=== PATIENT | female | born 2005 | race Caucasian/White ===

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

== ENCOUNTER 2023-04-17 11:29 | Emergency (ER) | payer BC, SELFPAY ==
[2023-04-17 11:42] VITALS: BP 136/76; PULSE 81; RESP 16; TEMP 36.6; O2SAT 97
--- NOTE | 2023-04-17 11:49 | ED.NAVMDI ---
HPI - Nausea/Vomiting/Diarrhea General Chief complaint: Nausea/Vomiting/Diarrhea Stated complaint: Nausea; Diarrhea Time Seen by Provider: 04/17/23 11:51 Source: patient and RN notes reviewed Mode of arrival: ambulatory Limitations: no limitations History of Present Illness HPI Narrative: 17 y/o female presented for c/o 4 days of nausea and diarrhea. Endorses one episode of vomiting today. Has been having only one episode of diarrhea daily. Reports occasional sweats. Denies abdominal pain, decreased appetite, hematochezia, melena, hematemesis, or urinary complaints. Not taking anything for symptoms. Denies sick contacts. Work needs covid test. LMP 3 months; scheduled with obgyn next week neg preg at home x3. Related Data Home Medications Medication Instructions Recorded Confirmed norethindrone 1.5 mg-ethinyl tablet 04/17/23 estradiol 30 mcg(21)/iron 75 mg(7) tablet (June FE 1.5/30 (28)) sertraline 50 mg tablet mg 04/17/23 Allergies Allergy/AdvReac Type Severity Reaction Status Date / Time cocamidopropyl betaine Allergy Unknown Unknown Verified 08/21/22 10:01 paraben Allergy Rash Verified 08/21/22 10:01 gold Allergy Unknown Unknown Uncoded 08/21/22 10:01 Review of Systems Review of Systems: CONSTITUTIONAL: Denies body aches, fever, chills reports sweats ENT: reports mild rhinorrhea, congestion CARDIOVASCULAR: Denies chest pain, palpitations, or edema. RESPIRATORY: Denies cough or dyspnea. GASTROINTESTINAL: Endorses nausea, vomiting, diarrhea. Denies abdominal pain, hematochezia, melena, hematemesis GENITOURINARY: Denies dysuria, hematuria, or CVA tenderness. SKIN: Denies rash, itching, or wounds. MUSCULOSKELETAL: Denies back pain, joint pain, or myalgia. NEUROLOGIC: Denies headache, numbness, tingling, or weakness. All systems reviewed & are unremarkable except as noted in HPI and below PMFSH Past Medical History Medical History Anxiety Concussion Elbow fracture, right Surgical History Surgical History History of placement of ear tubes Family History Family History Father Depression Heart disease Mother Diabetes mellitus Depression Cerebrovascular accident Sibling Asthma Depression Grandparent History of ETOH abuse Diabetes mellitus Hypertension Depression Grandparent History of ETOH abuse Depression Other No significant family history Social History Social History Smoking status: Current every day smoker Tobacco type: e-cigarettes/vaping Smoking end date: 05/29/22 Alcohol intake: never Substance use: current Substance use type: marijuana Lack of Transportation: No Lack of Food: Sometimes True Current Housing: I Have Housing Concerned About Future Housing: No Difficulty Paying Gas/Electric Bills: No Difficulty Paying for Meds: No Currently Unemployed: No Education: High School Diploma/GED Difficulty w/ Childcare or Family Care: No Living arrangements: with family Occupation/Education: occupation 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 Please see nursing chart for further information. There is no relevant family history pertinent to the presenting complaint Exam Narrative: GENERAL: Well-appearing, and in no acute distress. EYES: EOMI. Conjunctivae normal. ENT: Mucous membranes pink and moist. CHEST: No respiratory distress. Clear to auscultation. HEART: Regular rate and rhythm. No murmur appreciated. Normal peripheral pulses. ABDOMEN: abd soft, nondis
== END 2023-04-17 12:23 | disposition home or self-care (01) ==
PROVIDERS: Emergency Provider Nurse Practitioner Family; PCP Family Medicine
DX: R11.2 Nausea with vomiting, unspecified (principal); R19.7 Diarrhea, unspecified; Z20.822 Contact with and (suspected) exposure to COVID-19; F12.90 Cannabis use, unspecified, uncomplicated
CPT/HCPCS: 87426; 87804; 99213; C9803; G0463

== ENCOUNTER 2023-07-28 11:40 | Outpatient (CLI) | payer BC, SELFPAY ==
[2023-07-28 19:56] LABS: Hepatitis B Surface Anti Res Negative
[2023-07-31 13:17] LABS: Rubeola Measles IgG >300.00 AU/mL
== END 2023-07-28 11:41 | disposition home or self-care (01) ==
LOC: ANHBWCLAB 11:42
PROVIDERS: PCP Nurse Practitioner Adult Health; Visit Provider Nurse Practitioner Adult Health
DX: Z01.84 Encounter for antibody response examination (principal)
CPT/HCPCS: 36415; 86706; 86735; 86762; 86765; 86787

== ENCOUNTER 2023-10-30 12:14 | Emergency (ER) | payer BC, SELFPAY ==
--- NOTE | ~2023-10-30 | XR_ITS ---
EXAMINATION: XR lumbar spine 2-3V DATE: 10/30/2023 12:48 INDICATION: Low back pain TECHNIQUE: Anteroposterior and lateral views of the lumbar spine, and cone-down lateral view of the l umbosacral junction were obtained. COMPARISON: None. FINDINGS: Alignment is normal. Vertebral body and disc heights are normal. Lumbar facet, bilateral sacroiliac a nd bilateral hip joints all appear normal. Large amount stool scattered throughout colon which can be seen with constipation. IMPRESSION: 1. Negative lumbar spine radiographs. Reviewed, dictated and finalized at location A.
[2023-10-30 12:26] VITALS: BP 123/70; PULSE 88; RESP 16; TEMP 36.7; O2SAT 100
--- NOTE | 2023-10-30 13:15 | ED.GENADULT ---
HPI - General Adult General Chief complaint: Back Pain/Injury Stated complaint: back pain Source: patient Mode of arrival: ambulatory Limitations: no limitations History of Present Illness HPI narrative: Patient presents for evaluation low back pain since yesterday. She indicates she attempted to lift boyfriend up over her shoulder which she felt a pop? in her low back. She currently rates her pain as 6/10 and describes it as sharp. No radicular component. No paresthesias. No saddle anesthesia. No bladder/bowel incontinence. She has not taken any medication for her symptoms. Related Data Allergies Allergy/AdvReac Type Severity Reaction Status Date / Time cocamidopropyl betaine Allergy Unknown Unknown Verified 07/28/23 11:07 paraben Allergy Rash Verified 07/28/23 11:07 gold Allergy Unknown Unknown Uncoded 07/28/23 11:07 Review of Systems Review of Systems: CONSTITUTIONAL: Denies fever, chills, or sweats. EYES: Denies visual changes, redness, or discharge. ENT: Denies rhinorrhea, congestion, sore throat, or otalgia. CARDIOVASCULAR: Denies chest pain, palpitations, or edema. RESPIRATORY: Denies cough or dyspnea. GASTROINTESTINAL: Denies abdominal pain, nausea, vomiting, or diarrhea. GENITOURINARY: Denies dysuria or hematuria. SKIN: Denies rash or itching. MUSCULOSKELETAL: Reports low back pain. Denies joint pain or myalgia. NEUROLOGIC: Denies headache, numbness, dizziness, or weakness. PSYCHIATRIC: Denies anxiety or depression. [facility] Past Medical History Medical History Anxiety Concussion Elbow fracture, right Surgical History Surgical History History of placement of ear tubes Family History Family History Father Depression Heart disease Mother Diabetes mellitus Depression Cerebrovascular accident Sibling Asthma Depression Grandparent History of ETOH abuse Diabetes mellitus Hypertension Depression Grandparent History of ETOH abuse Depression Other No significant family history Social History Social History Smoking status: Current every day smoker Tobacco type: e-cigarettes/vaping Smoking end date: 05/29/22 Alcohol intake: never Substance use: current Substance use type: marijuana Lack of Transportation: No Lack of Food: Sometimes True Current Housing: I Have Housing Concerned About Future Housing: No Difficulty Paying Gas/Electric Bills: No Difficulty Paying for Meds: No Currently Unemployed: No Education: High School Diploma/GED Difficulty w/ Childcare or Family Care: No Living arrangements: with family Occupation/Education: occupation 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 HEAD: Normocephalic, atraumatic. EYES: PERRLA and EOMI. ENT: Nares clear, no rhinorrhea or epistaxis. Mucous membranes moist. Oropharynx without tonsillar hypertrophy exudate or other lesions. Bilateral TMs pearly norton nonbulging NECK: Supple. No adenopathy or masses. No carotid bruits or JVD CHEST: Clear to auscultation. No respiratory distress. No wheezes rales or rhonchi HEART: Regular rate and rhythm. No murmur heard. Normal peripheral pulses. ABDOMEN: Soft, nontender, nondistended, normal active bowel sounds. BACK:Mild tenderness in midline and paraspinous muscles of the lumbar spine. EXTREMITIES: Normal range of motion. No edema. SKIN: Warm, dry, no rash. NEURO: No focal deficits. Alert and oriented x3. PSYCH: Normal mood and affect. Course Course Emergency Course: This is a 18-year-old female who presented for evalu
== END 2023-10-30 13:15 | disposition home or self-care (01) ==
PROVIDERS: Emergency Provider Nurse Practitioner; PCP Nurse Practitioner Adult Health
DX: S39.012A Strain of muscle, fascia and tendon of lower back, initial encounter (principal); X50.0XXA Overexertion from strenuous movement or load, initial encounter; Z87.891 Personal history of nicotine dependence; F12.90 Cannabis use, unspecified, uncomplicated
CPT/HCPCS: 72100; 81025; 99213; G0463

== ENCOUNTER 2023-11-23 10:19 | Outpatient (CLI) | payer BC, SELFPAY ==
[2023-11-23 18:41] LABS: Hematocrit 39.9 % (37.0-47.0); Hemoglobin 13.5 g/dL (12.0-15.0); Mean Corpuscular HGB Conc 33.8 g/dl (32-36); Mean Corpuscular Hemoglobin 30.3 pg (26-34); Mean Corpuscular Volume 89.7 fl (80-100); Mean Platelet Volume 9.5 fl (7.4-10.4); Platelet Count Result 323 k/mm3 (150-375); Red Blood Count 4.45 M/mm3 (4.2-5.4); Red Cell Distribution Width 12.9 % (11.5-14.5); White Blood Count 5.8 K/mm3 (4.5-10.0)
[2023-11-23 19:01] LABS: Iron 122 ug/dL (37-170)
[2023-11-23 19:11] LABS: Alanine Aminotransferase 18 U/L (6-35); Albumin Level 4.5 g/dL (3.5-5.1); Alkaline Phosphatase 58 U/L (38-126); Anion Gap 11 mmol/L (4-12); Aspartate Amino Transferase 61 U/L (14-36); Bilirubin,Total 0.4 mg/dL (0.2-1.3); Blood Urea Nitrogen 13 mg/dL (7-17); Calcium 9.4 mg/dL (8.4-10.2); Carbon Dioxide 24 mmol/L (22-30); Chloride 102 mmol/L (98-107); Estimated Glomerular Filt Rate > 60; Glucose 94 mg/dL (65-110); Percent Iron Saturation 31 % (20-50); Potassium 3.8 mmol/L (3.4-5.0); Sodium 137 mmol/L (137-145)
[2023-11-23 19:19] LABS: Free T4 Free Thyroxine 0.98 ng/mL (0.78-2.19)
[2023-11-26 09:33] LABS: Thyroid Peroxidase Antibodies 51 IU/mL (<9)
== END 2023-11-23 10:20 | disposition home or self-care (01) ==
LOC: ANHBWCLAB 10:20
PROVIDERS: PCP Nurse Practitioner Adult Health; Visit Provider Nurse Practitioner Adult Health
DX: L65.9 Nonscarring hair loss, unspecified (principal)
CPT/HCPCS: 36415; 80053; 82728; 83540; 83550; 84439; 84443; 85027; 86376

== ENCOUNTER 2023-12-14 07:56 | Outpatient (CLI) | payer BC, SELFPAY ==
--- NOTE | ~2023-12-14 | US_ITS ---
EXAMINATION: US thyroid DATE: 12/14/2023 08:23 INDICATION: Other specified abnormal findings of blood chemistry. TECHNIQUE: Multiple ultrasound images of the thyroid were obtained. COMPARISON: None. FINDINGS: The right thyroid lobe measures 4.5 x 1.5 x 2.0 cm. The left thyroid lobe measures 4.5 x 1.4 x 1.8 c m. The thyroid demonstrates heterogeneous echogenicity. Vascularity is increased. No discrete nodule . IMPRESSION: 1. 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 Reviewed, dictated and finalized at location A.
== END 2023-12-14 07:57 | disposition home or self-care (01) ==
LOC: ANHIMG 07:59
PROVIDERS: PCP Nurse Practitioner Adult Health; Visit Provider Nurse Practitioner Adult Health
DX: R79.89 Other specified abnormal findings of blood chemistry (principal)
CPT/HCPCS: 76536

== ENCOUNTER 2024-01-12 15:43 | Emergency (ER) | payer BC, SELFPAY ==
--- NOTE | 2024-01-12 15:46 | ED.URI ---
HPI - URI/Sore Throat General Chief Complaint: Upper Respiratory Infection Stated Complaint: Sore Throat/Nausea Time Seen by Provider: 01/12/24 16:21 Source: patient and RN notes reviewed Mode of arrival: ambulatory Limitations: no limitations History of Present Illness HPI Narrative: 18-year-old female presents with concern for 3 day history of sore throat, nausea, cough, head congestion. She reports headache, fatigue. Denies fever, body aches, chills, sweats. She reports she has been taking cough drops. MD elicited complaint: cough and sore throat Related Data Home Medications Medication Instructions Recorded Confirmed etonogestrel 68 mg subdermal 1 implant subdermal ONCE 11/23/23 01/12/24 implant (Nexplanon) Allergies Allergy/AdvReac Type Severity Reaction Status Date / Time cocamidopropyl betaine Allergy Unknown Unknown Verified 01/12/24 16:11 paraben Allergy Rash Verified 01/12/24 16:11 gold Allergy Unknown Unknown Uncoded 01/12/24 16:11 Review of Systems Review of Systems: CONSTITUTIONAL: Denies malaise, chills, sweats, or fever. Reports fatigue EYES: Denies visual changes, redness, or discharge. ENT: Reports rhinorrhea, congestion, and sore throat. CARDIOVASCULAR: Denies chest pain, palpitations, or edema. RESPIRATORY: Reports cough. Denies dyspnea. GASTROINTESTINAL: Denies abdominal pain, nausea, vomiting, diarrhea SKIN: Denies rash or itching. MUSCULOSKELETAL: Denies myalgia. NEUROLOGIC: Reports headache. All systems reviewed & are unremarkable except as noted in HPI and below PMFSH Past Medical History Medical History Anxiety Concussion Elbow fracture, right Surgical History Surgical History History of placement of ear tubes Family History Family History Father Depression Heart disease Mother Diabetes mellitus Depression Cerebrovascular accident Sibling Asthma Depression Grandparent History of ETOH abuse Diabetes mellitus Hypertension Depression Grandparent History of ETOH abuse Depression Other No significant family history Social History Social History Smoking status: Current every day smoker Tobacco type: e-cigarettes/vaping Smoking end date: 05/29/22 Alcohol intake: never Substance use: current Substance use type: marijuana Lack of Transportation: No Lack of Food: Sometimes True Current Housing: I Have Housing Concerned About Future Housing: No Difficulty Paying Gas/Electric Bills: No Difficulty Paying for Meds: No Currently Unemployed: No Education: High School Diploma/GED Difficulty w/ Childcare or Family Care: No Living arrangements: with family Occupation/Education: occupation 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 There is no relevant family history pertinent to the presenting complaint Exam Narrative: GENERAL: Well-appearing, well-nourished, and in no acute distress. HEAD: Normocephalic EYES: PERRLA, conjunctivae clear ENT: Nares clear. Mucous membranes moist. TM pearly norton with dull light reflex bilaterally; no tragal tenderness. Oropharynx not erythematous without lesions. Tonsils not enlarged and without exudate, no drooling, no hoarseness, no trismus, uvula midline. NECK: Supple. No lymphadenopathy CHEST: Clear to auscultation, breath sounds equal. No wheezing, rhonchi, rales, or stridor. No respiratory distress, speaks in full sentences. HEART: Regular rate and rhythm. No murmur heard. SKIN: Warm, dry, no rash. NEURO: Alert and oriented x3. PSYCH: N
[2024-01-12 15:48] VITALS: BP 126/69; PULSE 78; RESP 181; TEMP 36.6; O2SAT 100
[2024-01-12 16:23] LABS: EDSTREPNEGPOS1 Negative (Negative)
[2024-01-12 16:25] LABS: EDCOVIDSCREEN Negative (Negative)
== END 2024-01-12 16:30 | disposition home or self-care (01) ==
PROVIDERS: Emergency Provider Nurse Practitioner; PCP Nurse Practitioner Adult Health
DX: J06.9 Acute upper respiratory infection, unspecified (principal); F41.9 Anxiety disorder, unspecified; Z20.822 Contact with and (suspected) exposure to COVID-19
CPT/HCPCS: 87081; 87635; 87880; 99213; G0463

== ENCOUNTER 2024-10-23 14:52 | Outpatient (CLI) | payer MEDICAID, SELFPAY ==
[2024-10-23 21:01] LABS: Free T4 Free Thyroxine 1.02 ng/dL (0.78-2.19)
== END 2024-10-23 14:53 | disposition home or self-care (01) ==
PROVIDERS: PCP Nurse Practitioner Adult Health; Visit Provider Nurse Practitioner Adult Health
DX: E06.3 Autoimmune thyroiditis (principal)
CPT/HCPCS: 36415; 84439; 84443

== ENCOUNTER 2025-02-28 14:38 | Outpatient (CLI) | payer MEDICAID, SELFPAY ==
--- OUTSIDE RECORDS SUMMARY | 2025-02-28 16:23 | XMS_ITS | Clinical Summary ---
Author Organization [facility] [address] Address [address] [place] [address] Phone Care Team Providers Care Pilling Machine Operator Name Role Phone Juan Cabrera MD Primary Care Provider Allergies Active Allergy Reactions Criticality Noted Date Comments Cocamidopropyl Betaine Rash Medium 11/12/2020 Other Rash Medium 11/12/2020 Paraben mix 1+ Gold 1+ Medications dupilumab (DUPIXENT) pen injector Inject 2 mL (300 mg total) under the skin every 14 (fourteen) days 4 mL 11 1 Active Additional Information Patient not taking.Reported on 05/29/2024 Lo Loestrin Fe 1 mg-10 mcg (24)/10 mcg (2) tablet per tablet 1 Active ondansetron (ZOFRAN) 4 mg tabletIndication s:nausea and vomiting after head strike Take 1 tablet (4 mg total) by mouth every 6 (six) hours 12 tablet 2 Active Additional Information Patient not taking.Reported on 05/29/2024 hydrocortisone 2.5 % ointmentIndicati ons:Atopic dermatitis, unspecified type Apply to eczema twice daily on face and nipples for no longer than 2 weeks. 30 g 5 3 Active Additional Information Patient not taking.Reported on 05/29/2024 triamcinolone (KENALOG) 0.1 % ointmentIndicati ons:Atopic dermatitis, unspecified type Apply to affected areas with eczema twice daily until rash resolves. 454 g 11 3 Active Additional Information Patient not taking.Reported on 05/29/2024 clindamycin (CLEOCIN T) 1 % lotionIndication s:Acne Vulgaris Apply topically 2 (two) times a day 60 mL 11 3 Active Additional Information Patient not taking.Reported on 05/29/2024 sertraline (ZOLOFT) 50 mg tablet Take 1 tablet (50 mg total) by mouth daily Active Active Problems Problem Noted Date Diagnosed Date Rash and other nonspecific skin eruption 018 Overview (05/21/2021): onset age 5 with worsening on TAC 09/23/17 consider ACD vs. occult tinea, resolving molluscum, component of facial sabina derm; rec OTC HC to face, cont TAC to body, Safe Products; fungal Cx + 1 mo empiric Rx terbinafine 250 mg; OTC medicated shampoo 2 dogs/1 cat at home Insurance coverage problems 09/23/2017 Overview (05/21/2021): [place] with limited skin medication formulary 09/23/17 discussed alternate insurance Closed nondisplaced fracture of medial epicondyle of right humerus 05/27/2017 Medical History Medical History Date Comments Eczema Depression Social History Tobacco Use Types Packs/Day Years Used Date Smoking Tobacco: Every Day Tobacco Cessation:Ready to Q uit: Not Asked; Counseling Given: Not Answered Alcohol Use Standard Drinks/Week Comments Not Currently 0 (1 standard drink = 0.6 oz pur e alcohol) Personal Safety Answer Date Recorded Have you ever been in or are you currently in a harmful physical or emotional relationship or is someone making you feel afraid or unsafe? Denies 02/09/2024 Comments No Sex and Gender Information Value Date Recorded Sex Assigned at Not on file Legal Sex Female 8:24 AM MANAGER HEART Gender Identity Not on file Sexual Orientation Not on file Obstetrics History Last Filed Vital Signs Vital Sign Reading Time Taken Comments Blood Pressure 126/80 05/29/2024 3:55 PM MANAGER HEART Pulse 95 05/29/2024 3:55 PM MANAGER HEART Temperature 36.7 C (98 F) 05/29/2024 3:55 PM MANAGER HEART Respiratory Rate 16 05/29/2024 3:55 PM MANAGER HEART Oxygen Saturation 99% 05/29/2024 3:55 PM MANAGER HEART Inhaled Oxygen Concentration - - Weight 74.8 kg (165 lb) 05/29/2024 3:55 PM MANAGER HEART Height 167.6 cm (5' 6) 05/29/2024 3:55 PM MANAGER HEART Body Mass Index 26.63 05/29/2024 3:55 PM MANAGER HEART Plan of Treatment Health Maintenance Due Date Last Done Comments Cervical Cancer Screening 2003 Depression Screening 2003 Hepatitis C Screening 2003 Pneumococcal vaccine <65 (1 of 1 - PPSV23, PCV20, or PCV21) 09/06/2009 03/14/2004, 01/17/2004, 2003 Regular Well Visit/Exam 18-64 09/06/2021 Covid-19 Vaccine (3 - 2024-2 6 season) 2025 08/22/2020, 08/01/2020 Influenza Vaccine (#1) 2025 , 02/02/2022, 04/12/2019, Additional history exists DTaP/Tdap/Td Vaccine (8 - Td or Tdap) 09/13/2030 09/13/2020, 11/26/2014, 12/05/2008, Additional history exists Hepatitis B Screening Completed 03/14/2004 , 01/17/2004, 2003, Additional history exists Varicella Vaccines Completed 12/05/2008, 09/16/2004 HPV Vaccines Completed 02/15/2017, 01/02, 11/26/2014 Meningococcal Vaccine Completed 09/21/2019, 015 Meningococcal B Vaccine Completed 10/26/2019, 09/20 Insurance [facility] [address] [place] [address] [facility][1] [facility] Care Teams Pilling Machine Operator Relationship Specialty Start Date End Date Juan Cabrera MD PCP - General Pediatrics 05/27/17
--- OUTSIDE RECORDS SUMMARY | 2025-02-28 16:23 | XMS_ITS | Clinical Summary ---
Author Organization [facility] Address [address] [place] [address] Care Team Providers Care Assembly Line Brazer Name Role Phone Juan Cabrera MD Unavailable [phone] Yelena Cleary MD Primary Care Provider [phone] Source Comments [facility],non-owned Affiliates and Associated Physician Practices is amultiple site organization consisting of ambulatory clinics and hospital sitesin [place], [place], [place] and [place]. This disclosure is being madepursuant to the Care Everywhere program and may not contain all information available regarding this patient. Last updated 18.[facility] Allergies No known active allergies Medications * Be aware that medications may not be up to date on this document. Alwaysverify current medications with the patient. acetaminophen (TYLENOL) 325 MG tablet Take 325 mg by mouth every 4 hours as needed for Fever or Pain Maximum allowable Acetaminophen amount = 4 Grams (4000 mg) / 24 hours. Active vitamin D, ergocalciferol , (DRISDOL) 43089 UNITS capsule 8 Active triamcinolone acetonide (KENALOG) 0.1 % ointment APPLY BY TOPICAL ROUTE TO RASH ONE TO TWO TIMES DAILY - BUT NOT ON FACE 2 8 Active amitriptyline (ELAVIL) 25 MG tablet 8 Active terbinafine (LAMISIL) 250 MG tablet Take 1 tablet by mouth once daily 30 tablet 8 Active Additional Information Patient not taking.Reported on 09/13/2020 oxyCODONE, immediate release, (ROXICODONE) 5 MG tablet Take 1 (one) tablet by mouth every 4 hours as needed for Pain 8 tablet Active Active Problems Problem Noted Date Diagnosed Date Rash and other nonspecific skin eruption 018 Overview (09/24/2017): onset age 5 with worsening on TAC 09/23/17 consider ACD vs. occult tinea, resolving molluscum, component of facial sabina derm; rec OTC HC to face, cont TAC to body, Safe Products; fungal Cx + 1 mo empiric Rx terbinafine 250 mg; OTC medicated shampoo 2 dogs/1 cat at home Insurance coverage problems 09/23/2017 Overview (09/24/2017): [place] with limited skin medication formulary 09/23/17 discussed alternate insurance Closed nondisplaced fracture of medial epicondyle of right humerus 05/27/2017 Immunizations Immunization Administration Dates Next Due TDAP (7yrs+) 09/13/2020 Family History Medical History Relation Name Comments Eczema Maternal Grandmother Relation Name Status Comments Maternal Grandmother Social History Tobacco Use Types Packs/Day Years Used Date Smoking Tobacco: Never Smokeless Tobacco: Never Alcohol Use Standard Drinks/Week Comments Never 0 (1 standard drink = 0.6 oz pur e alcohol) Comments No Sex and Gender Information Value Date Recorded Sex Assigned at Not on file Legal Sex Female 2:05 PM CDT Gender Identity Not on file Sexual Orientation Not on file Last Filed Vital Signs Vital Sign Reading Time Taken Comments Blood Pressure 120/76 09/13/2020 8:39 PM CDT Pulse 76 09/13/2020 8:39 PM CDT Temperature 36.4 C (97.6 F) 09/13/2020 8:39 PM CDT Respiratory Rate 18 09/13/2020 5:33 PM CDT Oxygen Saturation 98% 09/13/2020 8:39 PM CDT Inhaled Oxygen Concentration - - Weight 67.4 kg (148 lb 9.4 oz) 09/13/2020 5:33 P M CDT Height 165.1 cm (5' 5) 09/23/2017 1:23 PM CDT Body Mass Index - - Plan of Treatment Health Maintenance Due Date Last Done Comments HIV SCREENING 09/06/2018 HPV VACCINE (1 - 3-dose series) 09/06/2018 CHLAMYDIA/GONORRHEA SCREENING 2019 MENINGOCOCCAL (Group B) VACC INE SHARED DECISION-MAKING (1 of 2 - Standard) 2019 HEPATITIS C SCREENING 09/02/2021 HEPATITIS B VACCINE (1 of 3 - 19+ 3-dose series) 09/06/2022 DEPRESSION SCREENING 05/03/2024 COVID-19 VACCINE (1 - 2023-2 5 season) 2025 INFLUENZA VACCINE (#1) 2025 DTAP/TDAP/TD VACCINES (2 - T d or Tdap) 09/13/2030 09/13/2020 ZOSTER VACCINE (1 of 2) 09/06/2053 HIB VACCINE Aged Out No longer eligi ble based on patient's age to complete this topic MENINGOCOCCAL GROUPS A/C/Y/W VACCINE Aged Out No longer eligible b ased on patient's age to complete this topic PNEUMOCOCCAL VACCINE Aged Out No long er eligible based on patient's age to complete this topic Insurance [facility] [id number] [place] [address] [facility] Care Teams Assembly Line Brazer Relationship Specialty Start Date End Date Yelena Cleary MD [address] [place], [place] [id number] PCP - General 09/18/20 Juan Cabrera MD [address] [place], [place] [id number] Pediatrics 09/01/17
--- OUTSIDE RECORDS SUMMARY | 2025-02-28 16:23 | XMS_ITS | Clinical Summary ---
Author Organization [id number] Address [address] [facility] [address] [place] [address] Phone Care Team Providers Care Blacksmith Assistant Name Role Phone Yelena Cleary MD Primary Care Provider Allergies No known active allergies Medications No known medications Active Problems No known active problems Immunizations Immunization Administration Dates Next Due INFLUENZA VACCINE QUADRIVALENT 3 YR UP PF IM 07/2021 INFLUENZA VACCINE QUADRIVALENT 6 MOS UP PF IM Family History Medical History Relation Name Comments Hypertension Father Diabetes Mother Relation Name Status Comments Father Mother Social History Tobacco Use Types Packs/Day Years Used Date Smoking Tobacco: Never Assessed Comments Unknown Sex and Gender Information Value Date Recorded Sex Assigned at Not on file Legal Sex Female 11:28 AM CDT Gender Identity Not on file Sexual Orientation Not on file Last Filed Vital Signs Vital Sign Reading Time Taken Comments Blood Pressure 134/86 12/15/2012 11:40 AM CDT Pulse 84 12/15/2012 11:40 AM CDT Temperature 36.9 C (98.4 F) 12/15/2012 11:40 AM CDT Respiratory Rate 20 12/15/2012 11:40 AM CDT Oxygen Saturation 98% 12/15/2012 11:40 AM CDT Inhaled Oxygen Concentration - - Weight 37.6 kg (83 lb) 12/15/2012 11:40 AM CDT Height 137.2 cm (4' 6) 12/15/2012 11:40 AM CDT Body Mass Index 20.01 12/15/2012 11:40 AM CDT Plan of Treatment Health Maintenance Due Date Last Done Comments CHLAMYDIA SCREENING (ANNUAL) 11-24 YEARS 09/06/2014 HPV VACCINES (1 - 3-dose series) 09/06/2018 HEPATITIS B VACCINES (1 of 3 - 19+ 3-dose series) 09/06/2022 CERVICAL CANCER SCREENING 09/06/2024 HPV/Cotest (21-29) 09/06/2024 PAP SMEAR 09/06/2024 INFLUENZA VACCINE (#1) 2024 01/25/2023, 2021 DTAP/TDAP/TD VACCINES (2 - Td or Tdap) 09/13/2030 Care Teams Blacksmith Assistant Relationship Specialty Start Date End Date Yelena Cleary MD [address] [place] [address] PCP - General Pediatrics 12/15/12
--- OUTSIDE RECORDS SUMMARY | 2025-02-28 16:23 | XMS_ITS | Clinical Summary ---
Author Organization [facility] Address [address] [place] [address] Phone Care Team Providers Care Lead Press Operator Name Role Phone Juan Cabrera MD Primary Care Provider Allergies No known active allergies Medications docusate sodium (COLACE) 60 MG/15ML Syrup Take 15 mL by mouth daily. 240 mL 0 07/27/2015 Active meloxicam (MOBIC) 7.5 MG Tablet Take 1 Tab by mouth daily. 10 Tab 02/24/2017 Active Social History Tobacco Use Types Packs/Day Years Used Date Smoking Tobacco: Passive Smo ke Exposure - Never Smoker Smokeless Tobacco: Never Alcohol Use Standard Drinks/Week Comments Not Currently 0 (1 standard drink = 0.6 oz pur e alcohol) Comments No Sex and Gender Information Value Date Recorded Sex Assigned at Not on file Legal Sex Female 10:43 PM CDT Gender Identity Not on file Sexual Orientation Not on file Last Filed Vital Signs Vital Sign Reading Time Taken Comments Blood Pressure 141/80 04/02/2020 4:07 PM STAFFING EXECUTIVE Pulse 73 04/02/2020 4:07 PM STAFFING EXECUTIVE Temperature 37.1 C (98.8 F) 04/02/2020 2:04 PM STAFFING EXECUTIVE Respiratory Rate 16 04/02/2020 4:07 PM STAFFING EXECUTIVE Oxygen Saturation 99% 04/02/2020 4:07 PM STAFFING EXECUTIVE Inhaled Oxygen Concentration - - Weight 67.8 kg (149 lb 7.6 oz) 04/02/2020 2:04 P M STAFFING EXECUTIVE Height 162.6 cm (5' 4) 04/02/2020 2:04 PM STAFFING EXECUTIVE Body Mass Index 25.66 04/02/2020 2:04 PM STAFFING EXECUTIVE Plan of Treatment Health Maintenance Due Date Last Done Comments Hepatitis C Virus (HCV) Screening 2003 Influenza Immunization (#1) 01/01/202504/02, 02/15/2017, 01/28/2015, Additional history exists SARS-COV-2 Immunization ( season) 2025 08/22/2020, 08/01/2020 Respiratory Syncytial Virus (RSV) Immunization (Adult) (1 - 1-dose 75+ series) 09/06/2078 Hepatitis B Immunization Completed 004, 01/17/2004, 2003, Additional history exists Pneumococcal Immunization Combined Aged Out 03/14/2004, 01/17/2004, 2003 No longer eligible based on patient's age to complete this topic Hepatitis A Immunization Discontinued 05/09/2007, 01/31 Measles Mumps Rubella (MMR) Immunization Discontinued 12/05/2008, 09/16/2004 Polio (IPV) Immunization Discontinued 009, 03/14/2004, 01/17/2004, Additional history exists Varicella Immunization Discontinued 12/05/2008, 2004 DTaP/Tdap/Td Immunization Discontinued 2014, 12/05/2008, 12/11/2004, Additional history exists TdaP Immunization Completed 11/26/2014 Human Papillomavirus (HPV) Immunization Completed 02/15/2017, 01/28/2015, 11/26/2014 Meningococcal Immunization (ACWY) Completed 09/21/2019, 11/26/2014 Meningococcal B Immunization Completed 10/26/2019, 09/21/2019 Rotavirus Immunization Aged Out No lo nger eligible based on patient's age to complete this topic Insurance MEDICAID [employer] Care Teams Lead Press Operator Relationship Specialty Start Date End Date Juan Cabrera MD [address] [place] [address] PCP - General Pediatrics 05/26/17
[2025-02-28 18:45] LABS: Hematocrit 38.3 % (37.0-47.0); Hemoglobin 12.9 g/dL (12.0-15.0); Mean Corpuscular HGB Conc 33.7 g/dl (32-36); Mean Corpuscular Hemoglobin 30.2 pg (26-34); Mean Corpuscular Volume 89.7 fl (80-100); Platelet Count Result 330 k/mm3 (150-375); Red Blood Count 4.27 M/mm3 (4.2-5.4); White Blood Count 7.2 K/mm3 (4.5-10.0)
[2025-02-28 18:55] LABS: Alanine Aminotransferase 16 U/L (6-35); Albumin Level 4.4 g/dL (3.5-5.1); Alkaline Phosphatase 74 U/L (38-126); Anion Gap 10 mmol/L (4-12); Aspartate Amino Transferase 50 U/L (14-36); Bilirubin,Total 0.6 mg/dL (0.2-1.3); Blood Urea Nitrogen 14 mg/dL (7-17); Calcium 9.0 mg/dL (8.4-10.2); Carbon Dioxide 24 mmol/L (22-30); Chloride 103 mmol/L (98-107); Estimated Glomerular Filt Rate > 60; Glucose 82 mg/dL (65-110); Potassium 4.0 mmol/L (3.4-5.0); Sodium 137 mmol/L (137-145); Total Protein 7.3 g/dL (6.3-8.2)
[2025-02-28 19:10] LABS: Free T4 Free Thyroxine 1.27 ng/dL (0.78-2.19)
[2025-02-28 19:29] LABS: Thyroid Stimulating Hormone 1.220 uIU/mL (0.465-4.680)
== END 2025-02-28 14:39 | disposition home or self-care (01) ==
PROVIDERS: PCP Nurse Practitioner Adult Health; Visit Provider Nurse Practitioner Adult Health
DX: E06.3 Autoimmune thyroiditis (principal); Z00.00 Encounter for general adult medical examination without abnormal findings
CPT/HCPCS: 36415; 80053; 84439; 84443; 85027